=== PATIENT | male | born 1965 | race Caucasian/White ===

== ENCOUNTER 2016-12-18 11:30 | Observation (INO) | payer OTHER ==
--- NOTE | 2016-12-18 08:17 | HP ---
DATE OF SURGERY: 12/18/2016 HISTORY OF PRESENT ILLNESS: The patient is a 51 year-old gentleman who had prior history of hernia repair a year or so ago. He fell last year and repair ripped out and he had return in bulge, occasional aches, recurrent left inguinal hernia on exam. Right side seemed to be okay at this time. As he had a fall and ripped out his hernia repair I felt he would benefit from repair of recurrent left inguinal hernia with mesh as an outpatient. PAST MEDICAL HISTORY: He denies any chronic illnesses. PAST SURGICAL HISTORY: He had hernia repair several years ago. MEDICATIONS: None. ALLERGIES: NKDA. FAMILY HISTORY: Negative. SOCIAL HISTORY: Half pack per day smoker. He denies alcohol abuse. REVIEW OF SYSTEMS: Twelve systems reviewed per admission assessment. No chest pain or palpitations other systems negative or noncontributory as above and per preadmission questionnaire. PHYSICAL EXAMINATION: GENERAL: No acute distress. HEENT: Sclerae nonicteric. NECK: No JVD. CHEST: Equal excursion, nonlabored breathing. CVS: Regular rate and rhythm. ABDOMEN: Soft. Recurrent left inguinal hernia on exam. No peritoneal signs. EXTREMITIES: No significant edema. NEURO: Alert, moving extremities symmetrically. No gross motor deficits noted. IMPRESSION: Status post fall ripping prior left inguinal hernia repair. I feel he would benefit from repair of recurrent hernia. 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 He also understands the overall risk of hernia recurrence, general risk of anesthesia, deep venous thrombosis, pulmonary embolism, pneumonia, general risk of aches, pains, burning or numbness possibly interfering with sexual function from the aches and pains standpoint, risk of urinary retention, overall risk of hernia recurrence but not limited to. He understands and agrees to the planned procedure and will proceed with open repair recurrent left inguinal hernia as an outpatient.
[~2016-12-18 11:30] MED LIST: Lactated Ringers 1,000 ML IV ONE; Sensorcaine 0.25% 10 ML ONE
[2016-12-18] MEDS ORDERED: CEFAZOLIN 2 GM-D5W BAG** 2 GM/50 ML ML IV ONE (11:47)
[2016-12-18] MEDS ORDERED: Lactated Ringers 1,000 ML IV SCH (12:00)
[2016-12-18] MEDS ORDERED: DIPRIVAN 200 MG/20 ML IV ONE (13:00)
[2016-12-18] MEDS ORDERED: TORAdol 30 mg Injection IV ONE (13:00)
[2016-12-18] MEDS ORDERED: SUBLIMAZE 100 MCG/2 ML IV ONE ×2 (13:00)
[2016-12-18] MEDS ORDERED: Zemuron 100 MG/10 ML IV ONE (13:00)
[2016-12-18] MEDS ORDERED: Naropin 0.5% 30 ML VIAL IJ ONE (13:00)
[2016-12-18] MEDS ORDERED: DILAUDID 2 MG INJECTION IV ONE (13:00)
[2016-12-18] MEDS ORDERED: Zofran 4 MG/2 ML VIAL IV ONE (13:00)
[2016-12-18] MEDS ORDERED: Decadron 4 MG INJ IV ONE (13:00)
[2016-12-18] MEDS ORDERED: Lactated Ringers 0 ML IV ONE (16:33)
[2016-12-18] MEDS ORDERED: Lactated Ringers 1,000 ML IV ONE ×2 (16:34→17:50)
[2016-12-18] MEDS ORDERED: APRESOLINE 20 MG/ML INJ ONE (17:28)
[2016-12-18] MEDS ORDERED: DILAUDID 2 MG INJECTION ONE (17:35)
[2016-12-18] MEDS ORDERED: SUBLIMAZE 100 MCG/2 ML ONE (17:35)
[2016-12-18] MEDS ORDERED: NORCO 5/325 MG PO PRN (19:08)
[2016-12-18] MEDS ORDERED: DILAUDID 1 MG/1ML PCA IV PRN (19:09)
[2016-12-18] MEDS ORDERED: NARCAN 1 MG/ML IV PRN (22:55)
[2016-12-18] MEDS ORDERED: Naprosyn 500 MG PO PRN (22:58)
[2016-12-19] MEDS ORDERED: Zofran 4 MG/2 ML VIAL ONE (03:10)
[2016-12-19] MEDS ORDERED: Naprosyn 500 MG PO PRN (06:29)
[2016-12-19 06:48] VITALS: PULSE 84
[2016-12-19 08:18] VITALS: BP 158/52; O2SAT 98
--- NOTE | 2016-12-19 08:55 | OP ---
SURGERY DATE/TIME: 12/18/2016 1405 PREOPERATIVE DIAGNOSIS: Recurrent left inguinal hernia. POSTOPERATIVE DIAGNOSIS: Incarcerated (sigmoid colon) recurrent sliding left inguinal hernia repair using existing mesh. PROCEDURE: Repair recurrent left inguinal hernia. SURGEON: Dr. Go Valle. MANAGER ER: Doug Lopez, Medical Student III. ANESTHESIA: General. ESTIMATED BLOOD LOSS: Minimal. INDICATIONS: As noted above. Risks and benefits explained in detail and not limited to and consent obtained. DESCRIPTION OF PROCEDURE AND FINDINGS: The patient is taken to the operating room. General anesthesia was induced. The abdomen and groin are prepped and draped in usual sterile fashion. A transverse incision made through the old scar. Dissection carried down through Trini fascia. External oblique split in the direction of its fibers. The old mesh was well incorporated. The recurrent hernia was quite sticky. It took some time to free the hernia from the surrounding inguinal canal structures. Once this was done the Cremasteric fibers were . The hernia sac entered. There was a sliding large piece of sigmoid colon that was quite incarcerated. Despite freeing all of the difficult edges of this sliding component. It still did not want to reduce in the abdomen despite trying multiple maneuvers. At this point it was felt the next best option as the opening was not large enough, it was not going to be able to pull it out laparoscopically as we would not be able to maintain pneumoperitoneum. The next best option a counter incision was made in the left lower quadrant a few centimeters above this area. Dissection carried down through the external oblique. The rectus muscles carefully retracted and carefully protected and was not transected. Dissection carried down through the transversalis fascia and peritoneum. The peritoneum entered sharply. The transverse colon was able to be grasped and still taking quite a bit of effort but slowly and carefully reducing it from the outside and gentle traction from the inside, this took quite some time but the colon was slowly and carefully freed from its surrounding attachments. This took some time but was slowly and carefully accomplished. The colon was inspected. There did not appear to be any evidence of any obvious injuries. It appeared to be intact and viable. Again, it was reduced back down in the abdomen where it belonged. As it had been such a difficult dissection, a KEITH drain was left in the left lower quadrant out through lateral stab wound. At this point the hernia defect itself, the old mesh was well incorporated. He had just ripped out the medial aspect of the internal ring. Therefore this is reapproximated with 0 Prolene, 0 PDS to a more normal sized internal ring fixating the suture with the hernia sac what there was of it was then ligated from the outside, high ligated with 0 Prolene from the outside and transfixed. Additionally as he had the peritoneum opening another purse string of 0 PDS was placed around the hernia sac on the inside further transfixing it. At this point copious amounts of irrigation irrigating until clear. Again the old mesh had ripped out at the medial aspect. The internal ring was the reapproximated more to a normal size internal ring with interrupted 0 Prolene and 0 PDS. The new internal ring is felt to be not to tight to cause any cord issues. He did have a fair amount of fat on the cord but it was felt this would do more harm dissecting the cord fat free as it did not appear to be a simple separate cord lipoma. Copious amount of irrigation irrigated. Again the colon had been re-inspected. No signs of any evidence of colotomy or any colon injury secondary to reducing and traction. At this point the copious amount of irrigation irrigating until clear. KEITH drain is in good position. The peritoneum was closed with some 0 PDS through the fascia and external oblique. The secondary incision was closed with running looped 0 PDS. Wound irrigated out. Good hemostasis noted. The external oblique freed up laterally and reapproximated with 0 PDS. Subcu irrigated out. Trini closed with 3-0 Vicryl, subcu closed with 3-0 Vicryl, skin closed with 4-0 Vicryl. KEITH drain secured with PDS suture and placed to bulb suction. The patient tolerated the procedure well. There were no immediate complications. This was a long difficult dissection given the very stuck, incarcerated colon with sliding component that would not free up well enough to reduce back down in the abdomen resulting requiring a secondary incision superior in the left lower quadrant. The patient tolerated the procedure as well as possible. Finding discussed with his friend in the waiting area. He was transferred to the recovery room in stable condition.
[2016-12-19] MEDS ORDERED: Zofran 4 MG/2 ML VIAL IV PRN (10:11)
[2016-12-19] MEDS ORDERED: TORAdol 30 mg Injection IV PRN (10:11)
== END 2016-12-19 16:00 | disposition home or self-care (01) ==
LOC: SDC 11:30 → MED SURG 18:42
PROVIDERS: ADMIT Surgery; ATTEND Surgery
PROC: 0YU60JZ Supplement Left Inguinal Region with Synthetic Substitute, Open Approach (ICD-10-PCS; principal; 2016-12-18)
DX: K40.31 Unilateral inguinal hernia, with obstruction, without gangrene, recurrent (principal); Z72.0 Tobacco use
CPT/HCPCS: 00830; 64425; 76942; 94760; G0378; J0360; J0690; J1100; J1170; J1885; J2405; J2704; J2795; J3010

== ENCOUNTER 2020-01-19 09:05 | Day surgery (SDC) | payer BC ==
--- NOTE | 2020-01-19 09:04 | HP ---
DATE OF SURGERY: 01/19/2020 HISTORY OF PRESENT ILLNESS: The patient is a 54 year old who was at work he sat all the way down and the patient felt had a sudden bulge. He has a moderate sized right inguinal hernia. I feel he would benefit from repair as he is symptomatic. PAST MEDICAL HISTORY: Chronic obstructive pulmonary disease. Anxiety and depression in the past. PAST SURGICAL HISTORY: He had prior left inguinal hernia repair. MEDICATIONS: Inhaler as needed. ALLERGIES: NKDA. FAMILY HISTORY: Negative in regards to this problem. SOCIAL HISTORY: Half pack per day smoker, denies alcohol abuse. REVIEW OF SYSTEMS: Fourteen systems reviewed. Pertinent for as noted above. No chest pain or palpitations. Other systems negative or noncontributory as above and per preadmission questionnaire. PHYSICAL EXAMINATION: GENERAL: No acute distress. HEENT: Sclerae nonicteric. Moist mucous membranes. NECK: No JVD. CHEST: Equal excursion, nonlabored breathing. CVS: Regular rate and rhythm. ABDOMEN: Soft. Prior left inguinal hernia repair appears to be stable at this point but he has moderate sized right inguinal hernia. EXTREMITIES: No cyanosis or edema. NEURO: Alert, moving extremities symmetrically. PSYCH: Appropriate mood and affect. SKIN: Dry and intact. IMPRESSION: Symptomatic moderate sized right inguinal hernia on exam. I feel the patient will benefit from repair. He was discussed open versus laparoscopic given his size and his type of work, I feel he would benefit from open repair to lessen the risk of recurrence. He was shown the risk sheet, explained the procedure in detail but not limited to bleeding or infection, risk of swollen or cumbersome incision, risk of ingrown hair or suture reaction, risk of mesh infection possibly requiring removal, overall risk of hernia recurrence, risk of black and blue bruising, risk of urinary retention perioperatively, some aches and pains, general risk of aches, pains, burning, numbness lower abdomen, groin, thigh or scrotal area possibly watermelon harvesting supervisor or chronic in nature 10 to 12%, possibly developing aches, pain, burning or numbness possibly interfering with sexual function from a pain stand point, possible sensory or nerve irritation, risk of scar formation, general risk of anesthesia, deep venous thrombosis, pulmonary embolism, pneumonia. Postoperative risk of hernia recurrence because of the type of work he does. He understands all of the above but not limited to, will proceed with open repair of right inguinal hernia with mesh as an outpatient.
[~2020-01-19 09:05] MED LIST changes: +CEFAZOLIN 2 GM-D5W BAG** 2 GM/50 ML ML IV SCH; -Lactated Ringers 1,000 ML IV ONE; +Lactated Ringers 1,000 ML IV SCH; -Sensorcaine 0.25% 10 ML ONE
[2020-01-19] MEDS ORDERED: Sensorcaine 0.25% 10 ML ONE (09:58)
[2020-01-19] MEDS ORDERED: Lactated Ringers 1,000 ML IV ONE (09:58)
[2020-01-19] MEDS ORDERED: Versed 2 MG/2 ML Injection ONE (11:57)
[2020-01-19] MEDS ORDERED: DIPRIVAN 200 MG/20 ML IV ONE (11:57)
[2020-01-19] MEDS ORDERED: SUBLIMAZE 250 MCG/5 ML ONE (11:57)
[2020-01-19] MEDS ORDERED: Xylocaine-Mpf 2% 5 Ml Vial ONE (11:57)
[2020-01-19] MEDS ORDERED: Ephedrine Sulfate 50 MG/ML ONE (12:18)
[2020-01-19] MEDS ORDERED: SUBLIMAZE 100 MCG/2 ML ONE (13:45)
[2020-01-19] MEDS ORDERED: DILAUDID 2 MG INJECTION ONE (13:55)
[2020-01-19 15:03] VITALS: O2SAT 96
[2020-01-19 15:38] VITALS: BP 173/100; PULSE 77
--- NOTE | 2020-01-20 10:28 | OP ---
SURGERY DATE/TIME: 01/19/2020 1210 PREOPERATIVE DIAGNOSIS: Right inguinal hernia. POSTOPERATIVE DIAGNOSIS: Right inguinal hernia. PROCEDURE: Open repair right inguinal hernia with mesh. SURGEON: Dr. Go Valle. ANESTHESIA: General. ESTIMATED BLOOD LOSS: Minimal. INDICATIONS: As noted above. Risks and benefits explained in detail and not limited to and consent obtained. DESCRIPTION OF PROCEDURE AND FINDINGS: The patient is taken to the operating room. General anesthesia induced. Right groin prepped and draped in usual sterile fashion. After official time out and no disagreement with planned procedure, a transverse incision was made in the right inguinal area. It had been confirmed and marked in the preoperative holding area. Dissection carried down through Trini fascia down through the external oblique in the direction of its fibers towards the external ring. The cord was gently mobilized up off the pubic tubercle with [place] drain. Cremasteric fibers carefully carefully protecting the visibl branches of the ilioinguinal and iliohypogastric nerve branches. The patient's moderately large indirect hernia sac was carefully freed from the surrounding cord vessels and vas. The cremasteric fibers mobilized upwards, it was opened and noted to be devoid of content. There was a little perineal edge in the wound. There was no evidence of any bowel contents at this point. It was then high ligated with 0 Prolene with the specimen with the sac passed off and discarded. There did not appear to be any separable cord lipoma. He did have moderate amount of cord fat intertwined in his cord veins and vessels. It was felt this would do more damage than any benefit as it was not a separate cord lipoma. Otherwise the direct hernia component was imbricated downwards with some running 0 PDS. Mesh repair with 2 x 4 piece of mesh cut to appropriate dimensions and secured with keyhole cut and secured with 0 Prolene with the fascia overlying the pubic tubercle run along León's ligament along the shelving portion of the inguinal ligament laterally past the internal ring with 0 Prolene. 0 Prolene used to transfix the rectus fascia medially. 0 Prolene used to transfix the aponeurosis internal oblique superiorly avoiding the visible branches of the ilioinguinal and iliohypogastric nerves. Tails of the mesh tacked together laterally with 0 Prolene. The new internal ring was felt to be not too tight. The tails of the mesh laid nice and flat laterally under external oblique this was nice and flat in a tension free manner. Copious amount of irrigation irrigating until clear. The external oblique was closed with 0 Vicryl, Trini closed with 3-0 Vicryl. Subcu closed with 3-0 Vicryl. Skin closed with 4-0 Vicryl. 0.25% Marcaine local had been injected along the skin incision back towards the origin of the inguinal area back towards the anterior iliac spine. Steri-Strips and sterile dressing applied. The patient tolerated the procedure well. There were no immediate complications. There was no family available to discuss the findings with out in the waiting area. If somebody returns and has questions, I could be paged. Otherwise, I will see him back in the office in two weeks as I will be out of town next week. My partner's will be around if there are any questions in the interim.
== END 2020-01-19 15:30 | disposition home or self-care (01) ==
LOC: SDC 09:05
PROVIDERS: ATTEND Surgery
DX: K40.90 Unilateral inguinal hernia, without obstruction or gangrene, not specified as recurrent (principal)
CPT/HCPCS: J0690; J1170; J2250; J2704; J3010